=== PATIENT | female | born 1955 | race Caucasian/White ===

== ENCOUNTER → 2017-06-15 | Outpatient (CLI) | payer OTHER | LOC: BMCIMAGING 08:34 | PROVIDERS: ATTEND Family Medicine | DX: Z12.31 Encounter for screening mammogram for malignant neoplasm of breast (principal); Z80.3 Family history of malignant neoplasm of breast | CPT/HCPCS: G0202 ==

== ENCOUNTER → 2017-07-08 | Outpatient (CLI) | payer OTHER | LOC: BMCIMAGING 09:53 | PROVIDERS: ATTEND Family Medicine | DX: Z13.820 Encounter for screening for osteoporosis (principal); N64.89 Other specified disorders of breast; M81.0 Age-related osteoporosis without current pathological fracture ==

== ENCOUNTER 2017-11-26 12:34 | Inpatient (IN) | payer OTHER ==
[2017-11-26 14:36] LABS: PLATELET COUNT 304 10^3/uL (150-400)
--- NOTE | 2017-11-26 14:59 | EDPHY ---
H & P Time Seen by Provider: 11/26/17 14:58 HPI/ROS: Chief complaint. Headache, numbness HPI. 62-year-old female presents emergency department with fatigue for 7 weeks. For the 1st month she has some low back pain as disappeared. She has now had headache for 3 days that is described as frontal and unusual. No head injury and no fever. No upper respiratory symptoms. She has altered sensation to fingers 3 through 5. No symptoms in the left leg. No weakness to the left upper extremity. No chest pain, shortness of breath, abdominal pain. Vomiting x1 today. Took Tylenol this morning at 7:00 a.m.. No change in her vision ROS Constitutional. Fatigue Eyes. no problems with vision ENT. no sore throat, no nasal drainage Cardiovascular. no chest pain Respiratory. no shortness of breath, no cough Abdominal. no abdominal pain, no nausea/vomiting, no diarrhea . no problems urinating MS. no calf pain/swelling, no neck/back pain, no joint pain Skin. no rash Lymph. no swollen glands Neuro. Headache; altered sensation fingers left 3 through 5. Past Medical/Surgical History: Past medical history is significant for dyslipidemia, anxiety Social History: , nonsmoker, no alcohol Smoking Status: Never smoked Physical Exam: General Appearance: Alert well-developed female mild distress vital signs are stable Eyes: Pupils equal and round no pallor or injection. ENT, Mouth: Mucous membranes are moist. Respiratory: There are no retractions, lungs are clear to auscultation. Cardiovascular: Regular rate and rhythm. Gastrointestinal: Abdomen is soft and nontender, no masses, bowel sounds normal. Neurological: Awake and alert, motor exams grossly normal. Speech is normal. Cranial nerves are normal. There is no facial numbness. There is no pronator drift. [id number] is intact bilaterally. Jrsp-gh-[id number] is intact. Patient notes altered sensation to fingers left 3 through Skin: Warm and dry, no rashes. Musculoskeletal: Neck is supple nontender. Extremities symmetrical, full range of motion. Psychiatric: Patient is oriented X 3, there is no agitation. Constitutional: Initial Vital Signs Temperature (C) 36.3 C 11/26/17 12:38 Heart Rate 60 11/26/17 12:38 Respiratory Rate 18 11/26/17 12:38 Blood Pressure 120/71 11/26/17 12:38 O2 Sat (%) 94 05/25/18 12:38 O2 Delivery Mode Room Air Allergies/Adverse Reactions: erythromycin base Allergy (Verified 11/26/17 12:37) Vomiting Penicillins Allergy (Verified 11/26/17 12:37) Hives simvastatin Allergy (Verified 11/26/17 12:37) Other-Enter Comments Home Medications: Medication Instructions Recorded Diazepam [Valium 10 MG (*)] 0.25 - 0.5 tab PO DAILY@03 PRN 05/20/15 Fluticasone Nasal [Flonase Nasal 1 sprays NASAL DAILY 05/20/15 [place]] Loratadine [Claritin 10 mg] 10 mg PO DAILY PRN 05/20/15 Lovastatin 20 mg PO HS 05/20/15 Multivitamins [Multivitamin (*)] 1 tab PO DAILY 05/20/15 Naphazoline HCl/Pheniramine [Eye 1 drop OP BID PRN 05/20/15 Allergy Relief Drops] [place]-3 Fatty Acids [Fish Oil 1000 1,000 mg PO DAILY 05/20/15 mg (*)] Xyzal Tablets 1 tab PO HS PRN 05/20/15 Aspirin EC [Aspirin EC 325 mg (*)] 325 mg PO DAILY #20 tab 06/06/15 Docusate Sodium [Colace 100 MG (*)] 100 mg PO BID #60 cap 06/06/15 Hydrocodone/APAP 5/325 [[place] 1 - 2 tab PO Q6 PRN #30 tab 06/06/15 5/325 (*)] Ondansetron Odt [Zofran Odt 4 mg 4 mg PO Q4 PRN #20 tab 06/06/15 (*)] celeCOXIB [Celebrex (*)] 200 mg PO DAILY #20 cap 06/06/15 Medical Decision Making - Diagnostics Imaging Results: Imaging Impressions Brain MRI 11/26/17 15:22 Impression: 1. Diffuse hemorrhagic enhancing metastasis throughout bilateral cerebral and cerebellar hemispheres, with the largest in the right frontal lobe anteroinferior mesial, left occipital lobe, left posterior temporal lobe, and right posterosuperior frontal lobe, demonstrating surrounding edema and hemosiderin likely representing hemorrhagic metastasis from melanoma versus thyroid cancer or renal cell cancer. 2. Leftward subfalcine herniation anterofrontal lobe from the right frontal lobe enhancing metastasis and surrounding edema. 3. No hydrocephalus or tonsillar herniation. 4. No acute infarct. Findings and recommendations discussed with Emergency Department physician, Osvaldo Cody M.D., at 1710 hours, on November 26, 2017. Final report concurs with initial preliminary interpretation. A test result has been communicated to a licensed care provider and documented in the [facility] Critical Result system on 11/26/2017 17:30, Message ID [id number]. MRI brain shows metastasis to the brain. Approximately 10 metastasis. Largest is in the frontal lobe measuring 3.6 x 2.8 cm. There is edema and midline shift. There is a metastasis right frontal posterior with edema that is likely the 1 causing symptoms to her left hand. MRI reviewed by me and discussed with Dr. Rosas Procedures: IV normal saline Toradol IV for headache ED Course/Re-evaluation: Re-evaluation 5:10 p.m.. Patient, her daughter, and I discussed imaging and lab results. We discussed treatment plan including recommendation for admission. They expressed understanding and agreement I consulted and discussed case Dr. Wallis, hospitalist, who agrees to the admission I consulted and discussed case with Dr. Jernigan for Oncology who will see the patient in consultation Differential Diagnosis: I considered migraine, CVA. It turns out the patient has metastatic cancer. We do not know the primary. But she has multiple mets to the brain with midline shift and edema. - Data Points Laboratory Results: Laboratory Results 11/26/17 14:20 11/26/17 14:20 11/26/17 11/26/17 11/26/17 14:20 14:20 14:20 WBC 9.32 10^3/uL 10^3/uL (3.80-9.50) RBC 4.79 10^6/uL 10^6/uL (4.18-5.33) Hgb 14.2 g/dL g/dL (12.6-16.3) Hct 42.8 % % (38.0-47.0) MCV 89.4 fL fL (81.5-99.8) MCH 29.6 pg pg (27.9-34.1) MCHC 33.2 g/dL g/dL (32.4-36.7) RDW 13.0 % % (11.5-15.2) Plt Count 304 10^3/uL 10^3/uL (150-400) MPV 10.2 fL fL (8.7-11.7) Neut % (Auto) 79.0 % H % (39.3-74.2) Lymph % (Auto) 14.3 % L % (15.0-45.0) [place] % (Auto) 5.0 % % (4.5-13.0) Eos % (Auto) 0.8 % % (0.6-7.6) Baso % (Auto) 0.4 % % (0.3-1.7) Nucleat RBC Rel Count 0.0 % % (0.0-0.2) Absolute Neuts (auto) 7.36 10^3/uL H 10^3/uL (1.70-6.50) Absolute Lymphs (auto) 1.33 10^3/uL 10^3/uL (1.00-3.00) Absolute Monos (auto) 0.47 10^3/uL 10^3/uL (0.30-0.80) Absolute Eos (auto) 0.07 10^3/uL 10^3/uL (0.03-0.40) Absolute Basos (auto) 0.04 10^3/uL 10^3/uL (0.02-0.10) Absolute Nucleated RBC 0.00 10^3/uL 10^3/uL (0-0.01) Immature Gran % 0.5 % % (0.0-1.1) Immature Gran # 0.05 10^3/uL 10^3/uL (0.00-0.10) Sodium 143 mEq/L mEq/L (135-145) Potassium 3.9 mEq/L mEq/L (3.3-5.0) Chloride 108 mEq/L mEq/L (97-110) Carbon Dioxide 23 mEq/l mEq/l (22-31) Anion Gap 12 mEq/L mEq/L (8-16) BUN 14 mg/dL mg/dL (7-23) Creatinine 0.5 mg/dL L mg/dL (0.6-1.0) Estimated GFR > 60 Glucose 104 mg/dL H mg/dL (70-100) Calcium 9.6 mg/dL mg/dL (8.5-10.4) TSH 0.981 uIU/mL uIU/mL (0.465-4.680) Medications Given: Discontinued Medications Dexamethasone (Decadron Injection) 10 mg IVP EDNOW ONE Stop: 11/26/17 17:25 Last Admin: 11/26/17 17:33 Dose: 10 mg Sodium Chloride (Ns) 1,000 mls @ 0 mls/hr IV EDNOW ONE; Wide Open PRN Reason: Protocol Stop: 11/26/17 15:22 Last Admin: 11/26/17 15:32 Dose: 1,000 mls Ketorolac Tromethamine (Toradol) 30 mg IVP EDNOW ONE Stop: 11/26/17 15:22 Last Admin: 11/26/17 15:32 Dose: 30 mg Ondansetron HCl (Zofran) 4 mg IVP EDNOW ONE Stop: 11/26/17 15:26 Last Admin: 11/26/17 15:31 Dose: 4 mg Departure - Departure Disposition: [facility] Acute Clinical Impression: Brain metastases Condition: Fair
[2017-11-26] MEDS ORDERED: KETOROLAC 30 MG/1 ML SDV IVP ONE (15:21)
[2017-11-26] MEDS ORDERED: NS 1,000 ML IV ONE (15:21)
[2017-11-26] MEDS ORDERED: ONDANSETRON 4 MG/2 ML VIAL IVP ONE (15:25)
[2017-11-26] MEDS ORDERED: GADOBUTROL 10 ML VIAL IVP ONE (16:37)
[2017-11-26] MEDS ORDERED: DEXAMETHASONE 10 MG/ML VIAL IVP ONE (17:24)
--- NOTE | 2017-11-26 18:27 | PDGENHP ---
History and Physical History and Physical: CC: Headache and numbness HISTORY: This patient presents to the ER today because of headache and numbness. She states that for approximately 7 weeks now she has been extremely fatigued and weak, sleeping 16-20 hours per day. She is down to doing almost no physical activity 1 normally she is going to the gym 5 days per week. Around 2 weeks ago she started having numbness in some of the fingers in her left hand intermittently. There is no pain with that. In the last 2 days she has developed frontal headaches with nausea and today vomited a couple of times. These are really the extent of her symptoms at this point. She attempted make an appoint with her primary care who felt that she should go to an urgent care as they did not have a space available today. She went to urgent care and was sent directly to the emergency room for further assessment. Here in the ER her assessment involved MRI scanning of the brain which shows multiple metastatic appearing lesions with some hemorrhage edema and some subfalcine herniation. There is no known history of cancer or previous suspicion of cancer. She has not lost weight. She has not had fevers, skeletal pain, skin lesions that sound suspicious, mucosal symptoms or ocular symptoms, abdominal pain, and before yesterday no nausea. Her bowel function has been normal. There has been no bleeding or bruising anywhere. There is no shortness of breath. She did have a bit of a cough in October but this is resolved. She had a recent breast exams and mammograms and July which were normal. She has had routine gynecologic assessments without issues. She has no exposures to speak of that would predispose her to specific malignancy. In terms of family history her mother and maternal grandmother both had breast cancer, her grandmother subsequently of some other type of tumor the patient is unsure of, and her mother has had a lung cancer. Her mother has been cured apparently of her breast and lung cancer. Her breast tumor involved radiation she is uncertain of the treatment for her lung. She has never been a smoker and does not drink alcohol. ROS: A comprehensive 10 system review revealed no other significant findings PAST MEDICAL HISTORY: Anxiety disorder Arthritis Nasal allergies new FAMILY MEDICAL HISTORY: Breast, lung, and other cancers as above SOCIAL HISTORY: She is retired, No smoking or alcohol history MEDICATIONS: The medicine list has not yet been reconciled by the clinical pharmacist I am waiting for that to be done for my review. She does take some allergy medicines and vitamins. PHYSICAL EXAMINATION: Vital Signs: So far normal vital signs without fever Air And Water Filler: Examination: General: alert, oriented, good mentation, relaxed Skin: warm, dry, good color; I cannot find anything that appears suspicious for melanoma, with 1 dark nevus at her lumbar area which is flat small and with a very regular overall contour. There are number of other benign-appearing pigmented lesions but nothing that appears as a primary basilar squamous cell tumor. There are 2 areas of erythema with a bumpy contour or, 1 just below the left axilla and the other at the base of the neck posteriorly on the left, both of which have a mild inflammatory appearance without any blistering or scale. These are not of certain significance at the moment but may need further assessment. I could not rule out metastatic disease or a tumor induced syndrome. (her hair is quite thick and I was unable to get a really good examination of her scalp but saw the rest of her skin fully) LYMPH NODES: There is 1 very small mobile nontender lymph node low in the left axilla HEENT: normal Neck: no mass or jvd; I cannot feel any thyroid abnormalities Resps: relaxed Lungs: clear breath sounds Breast exam: Breasts are symmetric with no abnormal contours, and palpation of the nipples and breasts as well as the associated lymphatic drainage areas reveals no abnormalities, the breasts are not dense for examination Heart: regular, no murmur Abdomen: soft, nondistended, nontender, +BS, no mass Upper Extremities: normal Lower Extremities: no edema, warm No Bleeding or bruising Neurologic: normal speech/language, normal parts cleaner, no focal weakness IV site: looks normal LABORATORY DATA: CBC is unremarkable Basic metabolic panel and TSH were also done in the ER and these are unremarkable RADIOLOGY STUDIES: MRI of the brain is done in the ER today and I have reviewed all the images. There are multiple metastatic appearing lesions throughout the brain with some hemorrhage, with some edema, and with significant mass effect, midline shift, and subfalcine herniation beginning. 12 LEAD EKG: ASSESSMENT: # HEADACHE AND NUMBNESS which appeared to be due to multiple new brain lesions seen on MRI, suggesting metastatic disease # MIDLINE SHIFT AND SUBFALCINE HERNIATION SEEN ON MR raise risk for impending complications # SUSPECT DIFFUSE METASTATIC CANCER uncertain source At this time there is not a whole lot to go on. The radiologist's based on the MRI appearance suggests considering renal cell, melanoma, and thyroid. I do not see anything consistent with melanoma on examination, I cannot feel any thyroid masses, but could not rule out a mediastinal mass behind the skeleton. She has no tenderness or mass on exam consistent with a renal abnormality, but would need imaging studies to find such tumor. In terms of any other clues besides the MRI findings, there is a very small left axillary lymph node located fairly inferiorly, and if nothing else is located this could be biopsied. They are also the 2 skin lesions at the left axilla and left posterior neck which could be considered for biopsy as well, though these appear inflammatory and I I have no way of knowing how likely they are right now to be related to her disease process. At this point further blood testing may be helpful but I will start with a liver panel as well as CT scans of the chest abdomen and pelvis. Other imaging studies may also be useful as we go along. Concerning is that she has subfalcine herniation beginning on her CT scan and there is some hemorrhage in some of her brain lesions as well as edema. She has been started on steroid and will certainly want to continue that, and will need to avoid doing anything that might increase the risk of hemorrhage. It will certainly be advantageous to facilitate is quickly as we can coming to a diagnosis so that we can talk about treatment options and hopefully begin shrinking the brain lesions given the MR findings. I did discuss with the patient and her daughter at the bedside the fact that there options for her to not pursue diagnosis or pursue treatment. At this time she would like to be full cor until she knows more about her disease, and she would like to pursue diagnostic assessment to the point of knowing what disease she has and what treatment options there are and what her prognosis is. PLANS: -inpatient admission to begin treatment with steroids, possibly other treatments , and to begin search for origin of her disease -steroids have been started in the ER and will continue those with dexamethasone , and will use some acid reduction as well -treatment for symptoms with pain and nausea medicines for now -CT scan with contrast of chest abdomen pelvis -liver panel -will consult with Oncology -will presumably want to have a surgeon visit her but I will wait until we have the CT the result before determining where to go there. If no imaging findings that I would consider biopsying her left axillary lymph node and her skin lesions as described above. Biopsying the brain lesions could be considered in the event nothing else is available but would be probably a last resort I have reviewed the patient's case in detail with Dr. Osvaldo Cody I have reviewed the patient's past medical records as part of this assessment, including previous outpatient laboratory data
[2017-11-26] MEDS ORDERED: PROMETHAZINE HCL 25 MG/ML INJ IVP PRN (19:25)
[2017-11-26] MEDS ORDERED: HYDROmorphONE/DILAUDID 2 MG TAB PO PRN (19:25)
[2017-11-26] MEDS ORDERED: ONDANSETRON 4 MG/2 ML VIAL IVP PRN (19:25)
[2017-11-26] MEDS ORDERED: ONDANSETRON DISINTEGRATING 4 MG TAB PO PRN (19:25)
[2017-11-26] MEDS ORDERED: ACETAMINOPHEN 325 MG TAB PO PRN (19:25)
--- NOTE | 2017-11-26 20:47 | PDMN ---
Medical Necessity Medical necessity: C/M review: Patient meets INPT criteria under [facility] [id number] headaches, medical oncology GRG (Malignant neoplasm of brain, unspecified): Acute and persistent headaches, intermittent left hand numbness, fatigue weakness, midline shift and subfalcine herniation seen on MRI raise risk for impending complications, suspect diffuse metastatic cancer of uncertain source. brain MRI per radiologist - diffuse hemorrhagic enhancing metastasis throughout bilateral cerebral and cerebellar hemispheres with the largest in the right frontal lobe anterior / inferior mesial, left occipital lobe, left posterior temporal lobe, and right posterosuperior frontal lobe, demonstrating surrounding edema and hemosiderin likely representing hemorrhagic metastasis from melanoma versus thyroid cancer or renal cell cancer, leftward subfalcine herniation anterofrontal lobe from the right frontal lobe enhancing metastasis and surrounding edema, requiring planned Oncology consult, CT chest, abdomen / pelvis CT, IV Decadron x 1 in ED, ongoing oral Decadron Q 6 hrs., IV antiemetics as needed, oral Dilaudid as needed, comorbid no known history of cancer or previous suspicion for cancer, anxiety disorder, arthritis. MD anticipates > 2 MN LOS for ongoing med nec for eval and TX of above.
[2017-11-26] MEDS ORDERED: IOPAMIDOL (ISOVUE-300) 100 ML BTL ONE (21:16)
[2017-11-26] MEDS ORDERED: FLUTICASONE NASAL 120 SPRAYS/16 GM MDI EACHNARE PRN (22:24)
[2017-11-26] MEDS ORDERED: NAPHAZOLINE HCL/PHENIR 15 ML OPHT.BTL OP PRN (22:24)
[2017-11-26] MEDS: DEXAMETHASONE 4 MG TAB PO SCH (23:00)
[2017-11-26] MEDS: ZOLPIDEM TARTRATE 5 MG TAB PO PRN (23:00)
[2017-11-27] MEDS: DEXAMETHASONE 4 MG TAB PO SCH ×4 (05:03→23:03)
[2017-11-27] MEDS ORDERED: CETIRIZINE 10 MG TAB PO PRN (09:00)
--- NOTE | 2017-11-27 09:13 | HOSPPROG ---
Hospitalist Progress Note Assessment/Plan: The patient is a 62-year-old female who was admitted for metastatic brain lesions and found to have a right middle lobe lung mass. ASSESSMENT/PLAN: Multiple brain metastases, suspect primary lung cancer source Lung mass-right middle lobe, with pleural metastases Carinal/mediastinal lymphadenopathy Headache, resolved Fatigue -discussed case with Interventional Radiology - CT guided biopsy in AM. -discussed case with oncologist Dr. Jernigan. He will set the patient up with Oncology/[facility]. -consulted Neurosurgery for recommendations about brain masses. Patient is not a good candidate for brain biopsy or brain surgery. manager call center is Dr. Cahmbers who recommended no surgical intervention. Recommends palliative radiation therapy as soon as possible. -continue dexamethasone. -discussed case with the patient and her daughter. Lung primary is most likely. It is reassuring that the patient is up-to-date on her screening tests , including mammogram, colonoscopy. She has had skin check and breast exam on admission. VTE prophylaxis: SCDs. GI ppx: PPI (since on steroid) Code Status: Full code Status: Inpatient for greater than 2 midnight stay. Disposition: Med surg with discharge anticipated tomorrow. This patient is new to me. Reviewed patient's chart/records for this visit. ____ Subjective: Met with patient and her daughter today. Patient's headache has resolved. She feels much better than when she 1st arrived. She stills feels very fatigued. Objective: Vital Signs Temp Pulse Resp BP Pulse Ox 36.8 C 60 16 103/60 90 L 11/27/17 05:04 11/27/17 05:04 11/27/17 05:04 11/27/17 05:04 11/27/17 05:04 11/26/17 11/27/17 11/28/17 05:59 05:59 05:59 Intake Total 700 400 Output Total 400 250 Balance 300 150 General: The patient is a thin female who is alert and in no acute distress. HEENT: normocephalic, extraocular movements intact, conjunctivae clear, no lesions on face. Mucous membranes moist. Neck: trachea midline, no visible masses, no external lesions. Abd: soft and nondistended. Musculoskeletal: Normal muscle tone and bulk. Neuro: cranial nerves II XII grossly intact. Intact gross motor and sensory function. Psych: appropriate mood/affect. Skin: No pallor. Heme/lymph: No peripheral edema. CT chest w/ contrast: Impression: 1. Right middle lobe 4 x 3 cm dominant solid mass either representing primary lung carcinoma or metastasis. 2. Multiple right pleural metastasis noted. 3. Infracarinal metastatic adenopathy. 4. Consider CT-guided biopsy of right middle lobe mass. 5. Consider ultrasound of the thyroid gland and skin check to exclude possibility of thyroid carcinoma or melanoma resulting in hemorrhagic brain metastasis and right lung pulmonary metastasis. A PET scan may be of further benefit when the patient's medical condition permits. CT abd/pelv w contrast: 1. Hepatic and renal cysts. 2. No evidence of definite abdominal or pelvic metastasis. MRI brain w/w/o contrast: Impression: 1. Diffuse hemorrhagic enhancing metastasis throughout bilateral cerebral and cerebellar hemispheres, with the largest in the right frontal lobe anteroinferior mesial, left occipital lobe, left posterior temporal lobe, and right posterosuperior frontal lobe, demonstrating surrounding edema and hemosiderin likely representing hemorrhagic metastasis from melanoma versus thyroid cancer or renal cell cancer. 2. Leftward subfalcine herniation anterofrontal lobe from the right frontal lobe enhancing metastasis and surrounding edema. 3. No hydrocephalus or tonsillar herniation. 4. No acute infarct. - Time Spent With Patient Time Spent with Patient: greater than 35 minutes Time Spent with Patient: Greater than 35 minutes spent on this patients care, greater than 50% of time spent counseling, educating, and coordinating care regarding the above mentioned plan. ICD10 Worksheet Patient Problems: Problems Problem Status Onset Brain metastases Acute Primary localized osteoarthritis of right knee Acute
[2017-11-27] MEDS: MULTIVITAMINS 1 EACH TAB PO SCH (10:48)
[2017-11-27] MEDS: PANTOPRAZOLE SODIUM 40 MG TAB PO SCH (10:48)
--- NOTE | 2017-11-27 14:28 | GCON ---
[f rep st] CONSULTATION ONCOLOGY CONSULTATION DATE OF CONSULTATION: 11/27/2017 REASON FOR CONSULTATION: Multiple brain metastasis with right lung tumor. HISTORY OF PRESENT ILLNESS: The patient is a pleasant 62-year-old female who reports an approximate 6-week history of fairly profound fatigue. She then reports a 2- to 3-day history of frontal headache with nausea. The patient presented to the emergency department last evening. She had an MRI of the brain performed which revealed diffuse hemorrhagic enhancing metastasis throughout bilateral cerebral and cerebellar hemispheres. The largest was located in the right frontal lobe measuring 3.6 cm in greatest dimension with midline shift and leftward subfalcine herniation. The patient had no evidence of hydrocephalus or tonsillar herniation. There was no acute infarct. She has been started on dexamethasone 4 mg every 6 hours. Her headache has essentially resolved as has her nausea. When seen this afternoon, she denies any extremity weakness or numbness. The patient has had a subsequent CT of the chest performed which reveals a 4 cm solid mass in the right middle lobe with multiple right pleural metastasis. There is metastatic adenopathy below the chu. The CT of the abdomen and pelvis reveals no concerning mass or significant abnormality. The patient reports an occasional nonproductive cough. She denies weight loss or anorexia. She denies a breast mass. She denies abdominal pain or bloating. She denies an ataxic gait. PAST MEDICAL HISTORY: 1. Anxiety. 2. Osteoarthritis. PAST SURGICAL HISTORY: None. FAMILY MEDICAL HISTORY: Patient reports her mother was diagnosed with breast cancer age 69, and then diagnosed with lung cancer in her early 80s. Her mother was a smoker. She reports that her maternal grandmother was diagnosed with breast cancer age 49. She denies any other known family history of malignancy. SOCIAL HISTORY: The patient lives locally in [place]. She is to [place]. She has 2 daughters. 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 She is a lifelong nonsmoker. She drinks alcohol occasionally. REVIEW OF SYSTEMS: As outlined above. Remainder of 12-point review of systems otherwise negative. PHYSICAL EXAM: 1-Eileen Ernandez, present for entire exam. GENERAL: Patient is resting comfortably in bed. HEENT: Pupils equal, sclerae nonicteric. Conjunctivae normal. LYMPHATIC: No palpable submandibular, cervical, or supraclavicular adenopathy. No axillary adenopathy. HEART: Regular without murmur. LUNGS: Clear bilaterally without wheeze, rhonchi, or crackles. No flank tenderness. No tenderness with vigorous percussion over the cervical, thoracic, lumbosacral spines. ABDOMEN: Soft, nontender, nondistended with no organomegaly or mass. EXTREMITIES: No swelling or edema. SKIN: No visible rash. NEUROLOGIC: Patient is alert, oriented, and appropriate. Speech fluent. Upper extremity strength is 5/5 and symmetric. She can perform [id number] maneuver bilaterally without difficulty. She can move her lower extremities without difficulty. IMAGING: Result is outlined above. LABORATORY STUDIES: Sodium 143, potassium 3.9, chloride 109, bicarb 23, BUN 14 , creatinine 0.5, total bilirubin 1.0. AST 22, ALT 24, alk phos 52. TSH 0.9. White count 9.3; hemoglobin 14.2; platelet count 304,000. IMPRESSION: 1. Multiple brain metastasis. 2. Right middle lobe mass. 3. Pleural disease, right side. The patient is a pleasant 62-year-old female who presents with evidence of multiple brain metastasis. Further staging with a CT chest, abdomen, and pelvis reveals a 4 cm right middle lobe lung mass, pleural disease, and mediastinal adenopathy. The overall picture suggests metastatic lung cancer. The patient is a nonsmoker. Certainly, metastasis from another source is not excluded. The patient will require a biopsy to determine the type of malignancy. I discussed this with Radiology, who unfortunately informed me that a biopsy will not be possible over the holiday weekend and cannot be done until Wednesday. The patient is greatly improved following the initiation of dexamethasone. I think it would be reasonable to observe the patient overnight on dexamethasone, and if she has no further neurologic symptoms discharge her tomorrow with plan to have a biopsy performed on Wednesday. I discussed the case with Dr. Perez of the hospitalist service. Neurosurgical consultation will be requested. Certainly, brain biopsy could be considered; however, I would favor a CT-guided biopsy of the lung mass which would be less invasive. The patient would also prefer this approach. If the patient is felt safe for discharge by Neurosurgery and does well overnight, certainly she could be discharged tomorrow morning. We will arrange for oncology followup in our office next week. The concern for metastatic malignancy was discussed with the patient. She had multiple questions which were answered. Case was discussed with Dr. Perez as well as with [address] [place] [address] nursing staff. Total time for today's visit was approximately 65 minutes of which greater than 50% was spent in counseling and care coordination. /[id number]/MODL MTDD
--- NOTE | 2017-11-27 17:33 | GCON ---
[f rep st] CONSULTATION NEUROSURGICAL CONSULTATION DATE OF CONSULTATION: 11/27/2017 CHIEF COMPLAINT: Headache. HISTORY OF PRESENT ILLNESS: This is a very pleasant 62-year-old female, who has been in her usual an d regular health until approximately 1-2 days ago, when she started developing very severe headaches, associated with nausea. She states the headaches were actually better when she was sitting down, wo uld get worse when she would sit upright. They became so severe that she started to vomit. She went in for evaluation. She underwent an MRI of the brain, which revealed approximately 19 lesions, incl uding 1 large frontal lesion with edema and some subfalcine herniation and 2 large left parietal lesi ons with surrounding edema. She was started on steroids last night and has had resolution of her hea daches. She denies any current headache, nausea, vomiting, numbness, tingling, or weakness. She sta [place] that occasionally over the last couple of months, she has had some difficulty with a lisp or with diction or articulation. She is a right-handed female. She does state that over the last 2 months, she has had some fatigue. She has had no weight loss except for approximately 5 pounds while she wa s backpacking across [place] in April or May, and she is very healthy. She denies any other si gnificant complaints. PAST MEDICAL HISTORY: Positive for osteoarthritis of the right knee. PAST SURGICAL HISTORY: Includes hysterectomy and a couple of knee surgeries. SOCIAL HISTORY: She does not smoke. She does not drink alcohol. FAMILY HISTORY: She has no significant family history, particularly of lung cancers. ALLERGIES: Erythromycin, penicillin, and simvastatin. CURRENT MEDICATIONS: Include Tylenol, Zyrtec, Decadron, Valium, Flonase, Dilaudid, Keppra, Visine, Z ofran, Protonix, Pravachol, Phenergan, and Ambien. HOME MEDICATIONS: Include Motrin and eyedrops, multivitamin, lovastatin, Claritin, Valium. REVIEW OF SYSTEMS: Complete 10-point review of systems was performed by myself, was negative except as stated above. PHYSICAL EXAM: VITAL SIGNS: Blood pressure is 117/64. Heart rate is 64. Respiratory rate is 16, s aturating 94% on room air. Temp is 36.6 degrees Celsius. White blood cell count is 9.32, hemoglobin 14.2, hematocrit 42.8, platelets are 304. Sodium 143, pot assium 3.9, chloride 108, CO2 of 23, BUN [address], [address] of the chest reveals right middle lobe 4 x 3 cm, dominant, solid mass either representing primary lung carcinoma or metastasis, multiple right pleural metastases noted, infracarinal metastatic adenop athy. CT of the abdomen reveals hepatic and renal cysts. No evidence of definite abdominal or pelvi c mass. MRI of the brain with and without contrast reveals throughout bilateral cerebral and cerebel lar hemispheres, there are multiple enhancing masses, consistent with diffuse metastasis. There are approximately 19 to my count. Several of these metastases have hemosiderin content with hemorrhagic metastases, largest in the right frontal lobe, aspect, measuring 2.6 x 2.8 cm with surroun ding edema and some mass effect resulting in some midline shift, leftward subfalcine herniation anter iorly. There is approximately 9 mm of shift. The largest in the left occipital lobe is a complex, c ystic lesion, measuring 2.8 x 2.3 cm. Left posterior temporal lobe hemorrhagic metastasis measures 2 .1 x 1.9 cm. The right posterior frontal lobe hemorrhagic metastasis measures 1.8 x 1.5 cm with surr ounding edema, measuring 3.8 x 2.5 cm in the motor cortex, likely resulting in the patient's left arm paresthesias. Multiple additional smaller metastases throughout bilateral frontal, parietal, occipi aida and temporal lobes are also noted. A few subcentimeter enhancing masses in bilateral cerebellar hemispheres. Most of the cerebral edema is in the right frontal and left posterior temporal regions. No acute infarct or hydrocephalus. Mass effect in the right frontal lobe and right lateral ventric le, which is effaced with midline shift toward the left. A bit of tonsillar herniation. No evidence of leptomeningeal carcinomatosis. No definite skull fracture. She is alert and oriented x3. Pupil s are equal, round, reactive to light and accommodation. Extraocular muscles are intact. There is n o facial asymmetry or tongue deviation. 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 Strength is 5/5 to bilateral deltoids, biceps, triceps, wrist flexors, wrist extensors, hand intrinsics, iliopsoas, quadriceps, hamstrings, dorsiflexors, plantar flexors, EHL. She does have maybe a little bit of diction difficulty. Otherwise, speech is clear. She has no sign ificant cerebellar signs at this point in time and no drift. IMPRESSION AND PLAN: This is a 62-year-old female with greater than 19 cerebral metastases, the larg est of which is the right frontal, and there is a left parietal as well. There is significant edema around the right frontal. She is presently doing well from a neurological standpoint, and her headac hes have resolved since starting Decadron. I did start Keppra today given the fact that she has hemo rrhagic metastases. At this point in time, she is scheduled for a lung biopsy in the [facility] and palliative radiation to begin thereafter. I did discuss with her if she were to become obtun ded, resection of the right frontal lesion, and she and her family would discuss that; however, they are not inclined at this point in time. I have discussed this with Oncology and Primary Care. At th is point in time, a biopsy and palliative radiation in this setting would be the most ideal. Please call with any changes in neurologic status. /[id number]/MODL
[2017-11-27] MEDS: PRAVASTATIN SODIUM 20 MG TAB PO SCH (20:32)
[2017-11-27] MEDS: levETIRAcetam 500 MG TAB PO SCH (20:32)
[2017-11-27] MEDS: ZOLPIDEM TARTRATE 5 MG TAB PO PRN (21:58)
[2017-11-27 22:14] LABS: INR 1.02 (0.83-1.16); PROTIME(PATIENT) 13.6 SEC (12.0-15.0)
[2017-11-27] MEDS: DIAZEPAM 5 MG TAB PO PRN (23:03)
[2017-11-28] MEDS: DEXAMETHASONE 4 MG TAB PO SCH ×4 (05:40→23:59)
--- NOTE | 2017-11-28 06:44 | SOAPPROG ---
SOAP Progress Note Assessment/Plan: Assessment: 62 yo F with multiple brain lesion, likely metastatic in nature Plan: neuro: stable, hand paresthesias seem better with decadron lung biopsy by IR today continue decadron Neurosurgical intervention is not likely to help outcome please call with neuro changes discussed with Dr Chambers 11/28/17 06:42 Subjective: no headaches, paresthesias seem better. Objective: Vital Signs Temp Pulse Resp BP Pulse Ox 36.4 C 63 12 120/77 94 11/28/17 06:05 11/28/17 06:05 11/27/17 23:45 11/28/17 06:05 11/28/17 06:05 11/27/17 11/28/17 11/29/17 05:59 05:59 05:59 Intake Total 700 1050 Output Total 400 1450 Balance 300 -400 PT 13.6 SEC (12.0-15.0) 11/27/17 21:51 INR 1.02 (0.83-1.16) 11/27/17 21:51 AAOx4, +FC PERRL, EOMI, no facial droop KARIN x 4 + light touch ICD10 Worksheet Patient Problems: Problems Problem Status Onset Brain metastases Acute Primary localized osteoarthritis of right knee Acute
[2017-11-28] MEDS ORDERED: HEPARIN 10,000 UNIT/10 ML MDV (1,000 UNIT/ML) IVP PRN (08:11)
[2017-11-28] MEDS ORDERED: fentaNYL 100 MCG/2 ML INJ IVP PRN (08:11)
[2017-11-28] MEDS ORDERED: MEPERIDINE 25 MG/ML SYR IVP PRN (08:11)
[2017-11-28] MEDS ORDERED: GLUCAGON HCL 1 MG VIAL IVP PRN (08:11)
[2017-11-28] MEDS ORDERED: PROTAMINE SULFATE 50 MG/5 ML VIAL IVP PRN (08:11)
[2017-11-28] MEDS ORDERED: MIDAZOLAM 2 MG/2 ML VIAL IVP PRN (08:11)
[2017-11-28] MEDS ORDERED: FLUMAZENIL 0.5 MG/5 ML MDV IVP PRN (08:11)
[2017-11-28] MEDS ORDERED: ALTEPLASE 2 MG VIAL IVP PRN (08:11)
[2017-11-28] MEDS ORDERED: NALOXONE HCL 0.4 MG/ML INJ IVP PRN (08:11)
[2017-11-28] MEDS ORDERED: NS 1,000 ML IV SCH (08:15)
[2017-11-28] MEDS ORDERED: LIDOCAINE 1% 300 MG/30 ML SDV ONE (08:40)
--- NOTE | 2017-11-28 09:19 | PDPROPOC ---
Sedation Plan of Care Sedation Plan of Care: vital signs stable, mental status noted, patient educated of risks, benefits, alternatives, patient can tolerate sedation ASA Classification: ASA 3 Planned drugs: fentanyl, midazolam Mallampati Score: Class 2 Mallampati Reference Image:
--- NOTE | 2017-11-28 09:23 | PDGENHP ---
History & Physical Chief Complaint: Metastatic lung cancer suspected History of Present Illness: 62F p/w fatigue, nausea. Brain mets and RML mass found on imaging. Will initiate brain radiation on basis of lung mass tissue diagnosis. Relevant Physical Exam: AOx3, no focal deficits. Cardiorespiratory Assessment: rrr, nl wob
--- NOTE | 2017-11-28 10:24 | PDRADPN ---
Radiology Procedure Note Date of Procedure: 11/28/17 Radiologist: Federico Beckman Anesthesia: IV Sedation Pre-op Diagnosis: lung mass Post-op Diagnosis: same Indication: dx Procedure: CT guided RML mass biopsy Finding(s): 18G cores obtained from 4x3cm rml mass. path on site. Inf/Abcess present in the surg proc area at time of surgery?: No EBL: Minimal Complications: none Specimen(s): Three 18G cores in formalin
--- NOTE | 2017-11-28 12:28 | SOAPPROG ---
SOAP Progress Note Assessment/Plan: Assessment: 1) Multiple brain metastasis 2) Right middle lobe lung mass with pleural disease (Probable NSC lung cancer) Plan: Gaurang had a CT guided biopsy of her Right lung mass this AM. I discussed her prelim dx with Dr. Kauffman of pathology. The biopsy is consistent with a malignancy. It likely represents an adenocarcinoma. Further characterization will be forthcoming over the next few days. I have discussed the case with Dr. Chambers of Neurosurgery. We both feel that palliative whole brain radiation is the most appropriate next step. The patient has extensive disease with a large Right frontal lobe mass and subfalcine herniation. I thus think that moving forward with radiation now is appropriate. I discussed this with Gaurang at length. She understands that we do not have a final diagnosis, but that there is indication of malignancy, and that pallitive WBXRT is indicated somewhat urgently given the extensive nature of her PAN WASHER HAND disease. She is agreeable to XRT. I have spoken with Dr. Benja Mcgowan (Radiation Oncology) who will see the patient today and will potentially give her first XRT treatment today. She is improved on Dexamethasone, and we will continue her current steroid dosing. I recommend keeping her inpatient through at least Wednesday, so that XRT can be given, and she can be observed for any neurologic changes. Hopefully a definitive pathology report will be available Wednesday. We will discuss her further treatment options once a more formal diagnosis is known. Plan d/w patient and nursing. Her questions were answered. Total time = 65 minutes 11/28/17 12:17 Subjective: Feels somewhat better on steroids. GILLESPIE mostly gone. Reports only mild nausea. Still with mild numbness left finger, though this is improved. Had CT guided lung biopsy this morning Objective: Vital Signs Temp Pulse Resp BP Pulse Ox 36.5 C 52 L 17 126/74 H 95 11/28/17 09:03 11/28/17 12:00 11/28/17 11:30 11/28/17 12:00 11/28/17 12:00 11/27/17 11/28/17 11/29/17 05:59 05:59 05:59 Intake Total 700 1050 200 Output Total 400 1450 Balance 300 -400 200 PT 13.6 SEC (12.0-15.0) 11/27/17 21:51 INR 1.02 (0.83-1.16) 11/27/17 21:51 - Time Spent With Patient Time Spent With Patient: 40 minutes with patient. Total 65 minutes coordinating care including phone discussion with Dr. Kauffman and Dr. Mcgowan Physical Exam - Physical Exam General Appearance: alert, no apparent distress EENT: PERRL/EOMI Respiratory: lungs clear Cardiac/Chest: regular rate, rhythm Neuro/Psych: normal mood/affect, oriented x 3, other, No abnormal cerebellar tests, No motor weakness (Patient reports mild numbness finger tips Left hand) ICD10 Worksheet Patient Problems: Problems Problem Status Onset Brain metastases Acute Primary localized osteoarthritis of right knee Acute
[2017-11-28] MEDS: MULTIVITAMINS 1 EACH TAB PO SCH (13:59)
[2017-11-28] MEDS: levETIRAcetam 500 MG TAB PO SCH ×2 (13:59→21:33)
[2017-11-28] MEDS: PANTOPRAZOLE SODIUM 40 MG TAB PO SCH (14:00)
--- NOTE | 2017-11-28 14:09 | HOSPPROG ---
Hospitalist Progress Note Assessment/Plan: The patient is a 62-year-old female who was admitted for GILLESPIE, nausea, fatigue when she was found to have metastatic brain lesions. She was also found to have a right middle lobe lung mass, which was biopsied. ASSESSMENT/PLAN: Multiple brain metastases, suspect primary lung cancer source Vasogenic brain edema w/ midline shift, subfalcine herniation Lung mass-right middle lobe, with pleural metastases Carinal/mediastinal lymphadenopathy Headache, resolved Fatigue -Pt underwent Ct guided biopsy today. Path pending. -discussed case with oncologist Dr. Jernigan. He will set the patient up with Oncology as outpt. He has requested consult from [facility], who will see pt today. She may start pall radiation today. -consulted Neurosurgery for recommendations about brain masses. Patient is not a good candidate for brain biopsy or brain surgery. See consult note for further details. -continue dexamethasone. -discussed case with the patient and her mother. I reviewed genetic tests in records mother had brought - BRCA 1-2 negative. -check AM labs. VTE prophylaxis: SCDs. GI ppx: PPI (since on steroid) Code Status: Full code Status: Inpatient for greater than 2 midnight stay. Disposition: Med surg with discharge anticipated sometime mid-week ____ Subjective: Today pt feels about the same. +fatigue. Tolerated biopsy well. Objective: Vital Signs Temp Pulse Resp BP Pulse Ox 36.5 C 67 17 109/53 L 97 11/28/17 09:03 11/28/17 13:01 11/28/17 11:30 11/28/17 13:01 11/28/17 13:01 11/27/17 11/28/17 11/29/17 05:59 05:59 05:59 Intake Total 700 1050 200 Output Total 400 1450 Balance 300 -400 200 PT 13.6 SEC (12.0-15.0) 11/27/17 21:51 INR 1.02 (0.83-1.16) 11/27/17 21:51 Gen: NAD, alert, oriented. HEENT: NC, EOMI, MMM. Resp: unlabored breathing. MSK: nl muscle tone/bulk. Neuro: CN II-XII grossly intact. Psych: appropr mood/affect. Skin: no rash. ICD10 Worksheet Patient Problems: Problems Problem Status Onset Brain metastases Acute Primary localized osteoarthritis of right knee Acute
--- NOTE | 2017-11-28 19:09 | ASMTCMCOM ---
CM Note CM Note Notes: Reviewed chart. Pt admitted following several weeks of fatigue, numbness, headaches. Pt found to have new diagnosis of brain mets and a pulmonary tumor/mass. Primary origin of cancer unknown. Pt is retired, and has a supportive dghtr. Spoke with NASIM Arellano. Pt underwent biopsy of lung mass today. Attempted to meet with pt to offer support; Eileen asked CM to wait another day or so. Discharge needs remain unclear at this time. CM will continue to follow. Current Discharge Plan: To be determined Date Signed: 11/28/2017 07:08 PM Electronically Signed By:Kayley Owens RN
[2017-11-28] MEDS: PRAVASTATIN SODIUM 20 MG TAB PO SCH (21:33)
[2017-11-29 04:34] LABS: PLATELET COUNT 276 10^3/uL (150-400)
[2017-11-29] MEDS: DIAZEPAM 5 MG TAB PO PRN (04:51)
[2017-11-29] MEDS: DEXAMETHASONE 4 MG TAB PO SCH ×4 (06:34→23:17)
[2017-11-29] MEDS: PANTOPRAZOLE SODIUM 40 MG TAB PO SCH (09:46)
[2017-11-29] MEDS: MULTIVITAMINS 1 EACH TAB PO SCH (09:46)
[2017-11-29] MEDS: levETIRAcetam 500 MG TAB PO SCH ×2 (09:46→20:18)
--- NOTE | 2017-11-29 11:50 | SOAPPROG ---
SODREW Progress Note Assessment/Plan: Assessment: 1) Multiple brain metastasis 2) Right middle lobe lung mass with pleural disease (Probable NSC lung cancer) Plan: Gaurang had a CT guided biopsy of her Right lung mass on Wednesday. I discussed her prelim dx with Dr. Kauffman of pathology. The biopsy is consistent with a malignancy. It likely represents an adenocarcinoma. Further characterization will be forthcoming over the next few days. Gaurang started palliative WBXRT yesterday and has received 2 fractions. She will receive XRT tomorrow. She is improved on Dexamethasone, and we will continue her current steroid dosing throughout the course of XRT. I recommend keeping her inpatient through at least Wednesday, so that XRT can be given, and she can be observed for any neurologic changes. Hopefully a definitive pathology report will be available Wednesday. We will discuss her further treatment options once a more formal diagnosis is known. She will follow up at the [facility] once discharged. Plan d/w patient. Her questions were answered. Total time = 65 minutes 11/28/17 12:17 11/29/17 11:47 Subjective: Feels tired, but otherwise well. Denies GILLESPIE or nausea. Still with mild numbness in the fingers of the Left Hand. She has received palliative XRT x 2 Tx. Objective: Vital Signs Temp Pulse Resp BP Pulse Ox 36.6 C 64 18 100/80 94 11/29/17 09:06 11/29/17 09:06 11/29/17 09:06 11/29/17 09:06 11/29/17 09:06 Laboratory Results 11/29/17 04:12 11/29/17 04:12 11/28/17 11/29/17 11/30/17 05:59 05:59 05:59 Intake Total 1050 800 Output Total 1450 1300 Balance -400 -500 PT 13.6 SEC (12.0-15.0) 11/27/17 21:51 INR 1.02 (0.83-1.16) 11/27/17 21:51 - Time Spent With Patient Time Spent With Patient: 20 minutes Physical Exam - Physical Exam General Appearance: alert, no apparent distress EENT: PERRL/EOMI Neuro/Psych: alert, normal mood/affect ICD10 Worksheet Patient Problems: Problems Problem Status Onset Brain metastases Acute Primary localized osteoarthritis of right knee Acute
--- NOTE | 2017-11-29 16:52 | HOSPPROG ---
Hospitalist Progress Note Assessment/Plan: The patient is a 62-year-old female who was admitted for GILLESPIE, nausea, fatigue when she was found to have metastatic brain lesions. She was also found to have a right middle lobe lung mass, which was biopsied. ASSESSMENT/PLAN: Multiple brain metastases, suspect primary lung cancer source, s/p biopsy Vasogenic brain edema w/ midline shift, subfalcine herniation Lung mass-right middle lobe, with pleural metastases Carinal/mediastinal lymphadenopathy Headache, resolved Fatigue Leukocytosis, mild -FU Path results. -Oncology recs appreciated- palliative radiation daily. -continue dexamethasone. -check AM labs. VTE prophylaxis: SCDs. GI ppx: PPI (since on steroid). Code Status: Full code. Status: Inpatient for greater than 2 midnight stay. Disposition: Med surg with discharge anticipated in late week ____ Subjective: Today patient feels more fatigued. She got a dose of radiation yesterday and a dose of radiation today. Objective: Vital Signs Temp Pulse Resp BP Pulse Ox 36.7 C 52 L 18 148/86 H 94 11/29/17 15:08 11/29/17 15:08 11/29/17 15:08 11/29/17 15:08 11/29/17 15:08 Laboratory Results 11/29/17 04:12 11/29/17 04:12 11/28/17 11/29/17 11/30/17 05:59 05:59 05:59 Intake Total 1050 800 Output Total 1450 1300 Balance -400 -500 PT 13.6 SEC (12.0-15.0) 11/27/17 21:51 INR 1.02 (0.83-1.16) 11/27/17 21:51 General: The patient is a female who is alert and in no acute distress. HEENT: normocephalic, extraocular movements intact, conjunctivae clear, no lesions on face. Mucous membranes moist. Neck: trachea midline, no visible masses, no external lesions. Abd: soft and nondistended. Musculoskeletal: Normal muscle tone and bulk. Neuro: cranial nerves II XII grossly intact. Intact gross motor and sensory function. Psych: appropriate mood/affect. Skin: No pallor. ICD10 Worksheet Patient Problems: Problems Problem Status Onset Brain metastases Acute Primary localized osteoarthritis of right knee Acute
[2017-11-29] MEDS: PRAVASTATIN SODIUM 20 MG TAB PO SCH (20:18)
[2017-11-29] MEDS: ZOLPIDEM TARTRATE 5 MG TAB PO PRN (22:06)
[2017-11-30] MEDS: DEXAMETHASONE 4 MG TAB PO SCH ×2 (05:58→13:13)
[2017-11-30 07:36] LABS: PLATELET COUNT 299 10^3/uL (150-400)
[2017-11-30 08:57] VITALS: BP 104/65
[2017-11-30] MEDS: levETIRAcetam 500 MG TAB PO SCH (09:29)
[2017-11-30] MEDS: MULTIVITAMINS 1 EACH TAB PO SCH (09:29)
[2017-11-30] MEDS: PANTOPRAZOLE SODIUM 40 MG TAB PO SCH (09:30)
--- NOTE | 2017-11-30 15:04 | ASMTLACE ---
LACE Length of stay for Answers: 3 days current admission Acuity / Level of Answers: Yes Care: Did the patient have an inpatient admission? Comorbidities - select Answers: Any tumor (including all that apply lymphoma or leukemia) # of Emergency department Answers: 1-2 visits in the last 6 months Score: 9 Date Signed: 11/30/2017 03:04 PM Electronically Signed By:Amanda Garcia RN
--- NOTE | 2017-11-30 15:07 | ASMTCMCOM ---
CM Note CM Note Notes: Chart reviewed. Discussed with Dr. Harman. Patient medically cleared for discharge to home. No current needs identified. Patient reports she has a good support system in place. Discussed [facility]. Will provide patient with their number. Cm availble should other needs arise. Plan: Home with family Date Signed: 11/30/2017 03:07 PM Electronically Signed By:Amanda Garcia RN
--- NOTE | 2017-11-30 17:11 | PDDCSUM ---
Discharge Summary Discharge Summary: DISCHARGE SUMMARY FOLLOW-UP ITEMS: Tissue pathology pending at time discharge DATE OF ADMISSION: 11/26/2017 DATE OF DISCHARGE: 11/30/2017 DISCHARGE DIAGNOSES: 1. 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 Acute hemorrhagic brain masses 3. Vasogenic brain edema with midline shift and subfalcine herniation CONSULTATIONS: Oncology, Neurosurgery PROCEDURES / IMAGING: Interventional Radiology lung biopsy CHIEF COMPLAINT: Acute nausea, headache SUBJECTIVE: Patient reports that her nausea and headache have resolved PHYSICAL EXAM ON DISCHARGE: Systolic blood pressure 105-140, heart rate 50 60, afebrile overnight, satting well on room air, alert awake oriented x3, no apparent distress LABS ON DISCHARGE: Potassium 4.1, creatinine 0.6, hemoglobin 13.8 HOSPITAL COURSE BY PROBLEM: The patient presented with acute nausea, fatigue, and headache, secondary to metastatic brain lesions which were hemorrhagic, surrounded by vasogenic edema, resulting midline shift and subfalcine herniation, which were secondary to right middle lobe lung cancer, most likely adenocarcinoma on lung biopsy. This was a new diagnosis for the patient. She is in consultation by Neurosurgery who recommended high-dose steroids as well as prophylactic antiepileptic. The patient's symptoms of nausea and headache significantly improved with steroids. She will be discharged home on 8 mg twice daily to be tapered by the radiation oncologist. She also continue on antiepileptic medication. She will have as needed Zofran and Dilaudid if she experienced a recurrence of symptoms. She was initiated on whole brain radiation and will continue this on a regular schedule as an outpatient. Given that she is feeling substantially better, she requested to be discharged, and she will follow up later this week with Dr. Mae for confirmation of diagnosis, as well as development of outpatient plan moving forward. DISCHARGE MEDICATIONS: Please see official discharge medication reconciliation sheet in chart , dexamethasone 8 mg twice daily, Keppra 500 mg twice daily, as needed Zofran, as needed Dilaudid. DISCHARGE INSTRUCTIONS: Please follow up with Dr. Mae later this week, Dr. Otilia Chambers in 2-4 weeks, continue on scheduled whole-brain radiation TIME SPENT: Greater than 30 minutes were spent on direct patient care, as well as discharge planning and preparation.
== END 2017-11-30 15:50 | disposition home or self-care (01) | DRG 54 ==
LOC: F1N 18:33
PROVIDERS: ADMIT Internal Medicine; ATTEND Internal Medicine
PROC: 0BBD3ZX Excision of Right Middle Lung Lobe, Percutaneous Approach, Diagnostic (ICD-10-PCS; principal; 2017-11-28 09:21)
DX: C79.31 Secondary malignant neoplasm of brain (principal); C34.2 Malignant neoplasm of middle lobe, bronchus or lung; G93.6 Cerebral edema; Z80.3 Family history of malignant neoplasm of breast; Z80.1 Family history of malignant neoplasm of trachea, bronchus and lung
CPT/HCPCS: 92523-GN; 96374; 97162-GP; A9585; J1100; J1885; J2250; J2310; J2405; J3010; Q9967

== ENCOUNTER → 2017-12-08 | Outpatient (CLI) | payer OTHER | LOC: FIMAGING 08:24 | PROVIDERS: ATTEND Internal Medicine Hematology & Oncology | DX: C34.2 Malignant neoplasm of middle lobe, bronchus or lung (principal) | CPT/HCPCS: 78306; A9503 ==

== ENCOUNTER → 2018-03-02 | Outpatient (CLI) | payer OTHER ==
[~2018-03-02] MED LIST: GADOBUTROL 10 ML VIAL IVP ONE
== END ==
LOC: FIMAGING 10:15
PROVIDERS: ATTEND Internal Medicine Hematology & Oncology
DX: C79.31 Secondary malignant neoplasm of brain (principal); C34.2 Malignant neoplasm of middle lobe, bronchus or lung
CPT/HCPCS: A9585

== ENCOUNTER → 2018-05-31 | Outpatient (CLI) | payer OTHER | LOC: FIMAGING 11:22 | PROVIDERS: ATTEND Internal Medicine Hematology & Oncology | DX: Z12.31 Encounter for screening mammogram for malignant neoplasm of breast (principal); Z80.3 Family history of malignant neoplasm of breast; C34.2 Malignant neoplasm of middle lobe, bronchus or lung; C79.31 Secondary malignant neoplasm of brain | CPT/HCPCS: A9585 ==

== ENCOUNTER → 2018-08-30 | Outpatient (CLI) | payer OTHER | LOC: FIMAGING 12:32 | PROVIDERS: ATTEND Internal Medicine Hematology & Oncology | DX: C79.31 Secondary malignant neoplasm of brain (principal); C34.2 Malignant neoplasm of middle lobe, bronchus or lung | CPT/HCPCS: A9585 ==

== ENCOUNTER → 2018-11-25 | Outpatient (CLI) | payer OTHER | LOC: FIMAGING 10:20 | PROVIDERS: ATTEND Internal Medicine Hematology & Oncology | DX: C79.31 Secondary malignant neoplasm of brain (principal); C34.2 Malignant neoplasm of middle lobe, bronchus or lung | CPT/HCPCS: A9585 ==